=== PATIENT | female | born 1945 | race Caucasian/White ===

== ENCOUNTER 2016-05-12 17:05 | Emergency (ER) | payer MEDICAID, MEDICARE ==
[~2016-05-12 17:05] MED LIST: ZIT250 PO
[2016-05-12 17:25] VITALS: BP 125/86; PULSE 82; RESP 20; O2SAT 100
[2016-05-12 18:03] LABS: BASOPHILS % (AUTO) 1.3 % (0-3); EOSINOPHILS % (AUTO) 0.6 % (0-5); MONOCYTES % (AUTO) 7.3 % (4-12); Mean Corpuscular Hemoglobin 24.7 pg (27.0-35.0); Mean Corpuscular Volume 80.1 fL (81-100); NEUTROPHILS % (AUTO) 63.4 % (40-74); Platelet Count 348 bil/L (150-400)
[2016-05-12 18:15] LABS: INR 0.99 ratio
[2016-05-12 19:01] LABS: Magnesium 2.2 mg/dL (1.6-2.6)
[2016-05-12 19:18] LABS: APPEARANCE,URINE HAZY (CLEAR,HAZY); COLOR,URINE DARK YELLOW (YELLOW); OCCULT BLOOD,URINE LARGE (NEGATIVE); PH,URINE 6.5 (5.0-8.0)
--- NOTE | 2016-05-12 19:21 | ED.REPORT ---
HPI-Abd Pain F 40 and Over Date of Service May 12, 2016 ED Provider: Elena Gutierrez MD 70 y/o female with a history of gastric ulcers presents to ED after lower abdominal pain and increased nausea and vomiting 1 week ago. She also reports associated pain of her lower abdomen, which radiates to her back and to her sternum. The pain waxes and wanes, and is especially sharp after urination. She also reports that her urine is maroon colored. The patient reports a subjective fever and generalized weakness. She reports that her current symptoms are different than what she normally experiences in relation to her gastric ulcers. She reports that she has chronic upper abdominal pain, nausea, and vomiting due to her gastric ulcers. She typically eats 1x meal a day and day and vomits 1x per day. She has been vomiting 2x daily for the last week. She has associated decreased PO intake, only consuming soup, cream of wheat, and crackers. She vomits when eating anything different or a larger meal. She reports unintentional 10lb weight loss in the last month. The patient reports dark bowel movements, with the last one occurring yesterday. 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 She denies prior cholecystectomy or appendectomy. GI symptoms started 1 year ago and she underwent endoscopy in November which diagnosed the gastric ulcers. She subsequently started taking appropriate medications for ulcer treatment. Her GI physician is in the [facility]. Nursing Notes Stated Complaint: URINARY Chief Complaint: Female Abdominal Pain Nursing Notes Reviewed: Yes Allergies: Coded Allergies: Sulfa (Sulfonamide Antibiotics) (Verified Allergy, Severe, Anaphylaxis, ) Scheduled Azithromycin (Zithromax) 250 Mg Tablet 250 MG PO DAILY Famotidine (Pepcid) 20 Mg Tablet 20 MG PO BID General Time Seen by MD: 19:18 Chief Complaint Abdominal pain (Lower Abdominal pain) Hx Obtained From: Patient, Spouse Arrived By: Walk-in Sudden in Onset?: Yes Onset Occurred: 1 week ago Symptom Duration: Since onset Location: : Abdomen lower Quality: Painful Severity: Current: Moderate Severity: Maximum: Moderate Recent Healthcare: No recent doctor visit, No recent hospitalization Similar Sx Previous: Yes Past Medical History Past Medical History Dr. Wren at [facility] is her Manager [employer]. Gastric ulcers Reports: COPD Past Surgical History Pt has had surgeries to treat stomach ulcers and gastric valve repair Reports: Hysterectomy, Denies: Appendectomy, Cholecystectomy Family History Noncontributory Smoking History Current Every Day Smoker Social History Other Social History: Good social support, Local resident Ambulatory Status Independent Review of Systems +maroon urine Constitutional: Reports: Fever (subjective, feeling abnormally hot. ), Recent wt loss (10 pounds over the last month.), Weakness - generalized GI: Reports: Abdominal pain, Nausea, Vomiting, Denies: Diarrhea Complete sys rev & neg: except as marked. Physical Exam Vital Signs Vital Signs (First) Date Time Temp Pulse Resp B/P Pulse Ox O2 Delivery O2 Flow Rate FiO2 05/12/16 17:25 36.2 82 20 125/86 100 Room Air Initial VS: Reviewed, Vital signs normal Neurologic: Alert, Oriented, Nonfocal Psychiatric: Mood/affect normal, Behavior normal, Normal thought content General/Constitutional: Awake, Alert, Well developed Respiratory / Chest: Atraumatic, Breath sounds NL, Breath sounds = bilat, No respiratory distress, No rales, No rhonchi, No wheezing Cardiovascular: Heart rate NL, Regular rhythm, Heart sounds NL, No gallop, No murmurs, No rubs Abdomen: Atraumatic, Soft, No guarding, No rebound Tenderness/Guarding/Rebound: Positive: Tender RUQ... (Moderate), Tender epigastric Back: Atraumatic, No CVA tenderness Head / Eyes: Atraumatic, Normocephalic, PERRL, EOMI, No scleral icterus ENT: Mucous membranes moist Skin: Warm, Dry Upper Extremity / MS: Atraumatic, Full range of motion Lower Extremity / Pelvis / MS: Atraumatic, Full range of motion Interpretation & Diagnostics Lab Results Interpretation Result Diagram: 05/12/16 1751 05/12/16 1751 Test 05/12/16 17:51 05/12/16 17:57 05/12/16 18:52 White Blood Count 5.5th/mm3 (3.8-10.1) Red Blood Count 4.33mil/mm3 (3.90-5.20) Hemoglobin 10.7g/dL (12.0-15.6) Hematocrit 34.7% (35.0-46.0) Mean Corpuscular Volume 80.1fL (81-100) Mean Corpuscular Hemoglobin 24.7pg (27.0-35.0) Mean Corpuscular Hemoglobin Concent 30.8% (32.0-37.0) Red Cell Distribution Width 16.5% (12.3-15.4) Platelet Count 348bil/L (150-400) Neutrophils (%) (Auto) 63.4% (40-74) Lymphocytes (%) (Auto) 27.2% (14-46) Monocytes (%) (Auto) 7.3% (4-12) Eosinophils (%) (Auto) 0.6% (0-5) Basophils (%) (Auto) 1.3% (0-3) Prothrombin Time 10.6sec (8.1-12.5) Prothromb Time International Ratio 0.99ratio Sodium Level 144mEq/L (134-144) Potassium Level 3.6mEq/L (3.5-5.2) Chloride Level 104mEq/L (97-108) Carbon Dioxide Level 25mmol/L (18-29) Blood Urea Nitrogen 17mg/dL (8-27) Creatinine 0.56mg/dL (0.57-1.00) Estimat Glomerular Filtration Rate 153mL/min (>59) Glucose Level 101mg/dL (60-99) Calcium Level 8.8mg/dL (8.5-10.1) Magnesium Level 2.2mg/dL (1.6-2.6) Total Bilirubin 0.2mg/dL (0.0-1.2) Aspartate Amino Transf (AST/SGOT) 16U/L (0-50) Alanine Aminotransferase (ALT/SGPT) 9U/L (0-32) Alkaline Phosphatase 104U/L (25-165) Pro-B-Type Natriuretic Peptide 688.9pg/mL (0-301) Total Protein 6.9g/dL (6.4-8.4) Albumin 4.0g/dL (3.4-5.0) Lipase 16U/L (13-60) Hold [place]jeda Top Tube Received (Received) Urine Color Dark yellow (YELLOW) Urine Appearance Hazy (CLEAR,HAZY) Urine pH 6.5 (5.0-8.0) Urine Specific [place] 1.030 (1.003-1.035) Urine Protein 100mg/dL (NEG,TRACE) Urine Glucose (UA) 100mg/dL (NEGATIVE) Urine Ketones Tracemg/dL (NEGATIVE) Urine Occult Blood Large (NEGATIVE) Urine Nitrite Positive (NEGATIVE) Urine Bilirubin Negative (NEGATIVE) Urine Urobilinogen 1.0mg/dL (NORMAL) Urine Leukocyte Esterase Trace (NEGATIVE) Urine RBC 3-10/hpf (0-2) Urine WBC 0-5/hpf (0-5) Urine Epithelial Cells None/hpf (NONE-MOD) Urine Crystals None seen (NONE SEEN) Urine Bacteria Few/hpf (NONE-FEW) Urine Hyaline Casts None/lpf (NONE) Urine Granular Casts None seen (NONE SEEN) Urine Waxy Casts None seen (NONE SEEN) Urine Red Blood Cell Casts None seen (NONE SEEN) Urine White Blood Cell Casts None seen (NONE SEEN) Urine Mucus None seen (None Seen) Urine Trichomonas None seen (NONE SEEN) Urine Yeast None (NONE SEEN) Urinalysis Comment None Urine Culture Reflexed Indicated CT Abd / Pelvis Interpretation IMPRESSION: 1. A 2 mm stone in the inferior pole of the left kidney. No hydronephrosis. 2. Small indeterminate hypodense nodule in the left kidney is most likely a cyst. 3. Cholelithiasis and mild gallbladder distention. 4. There are postsurgical changes in stomach. The stomach is distended. ? gastric outlet obstruction. 5. Emphysema. 6. Mildly distended distal esophagus. This finding may be secondary to gastroesophageal reflux. Dictated by: Christy Alves M.D. on 05/12/2016 at 20:16 Approved by: Christy Alves M.D. on 05/12/2016 at 20:26 Study type: Abdominal CT no contrast Interpretation / Wet Read by: Interpret - Radiologist Re-Eval/Medical Decision Med Decision/Clinical Course The patient presents with increased vomiting and change in her urine. She does have some signs of infection however it is not clear so we will wait for culture given she has no dysuria. Also concern for possible gallbladder issue and acute renal failure related to her poor by mouth intake. Another consideration would be renal colic. CT did not reveal cause of her symptoms although they noted she did have an enlarged gastric bubble which could be related to gastric outlet obstruction. Patient has known peptic ulcer disease and has been treated so this could be related to developing gastric outlet obstruction however she is not fully obstructed given she is able to tolerate fluids. She was given a by mouth challenge here was able to keep liquids down. A partial list of differential diagnoses considered were pancreatitis, gastroenteritis, peptic ulcer disease, bowel obstruction, biliary colic, renal colic, renal insufficiency, and dehydration. In listening to her story it is most likely that her peptic ulcer disease is worsening, I explained to her she needs to get a hold of her technology coordinator for follow-up appointment this week. She is also instructed to cure her food and add more calories given she continues to lose weight. Source of Hx: Old records Re-Evaluation/Progress #1: Time of Eval: 20:34 Re-Evaluation/Progress Note: Rechecked with patient. Explained test results and answered patient questions. Re-Evaluation/Progress #2: Time of Eval: 21:49 Re-Evaluation/Progress Note: Rechecked patient to evaluate food and water consumption ability. Patient reported they could typically hold down water, but vomits solid foods. Will do PO trial with Ensure. Re-Evaluation/Progress #3: Time of Eval: 22:00 Patient Status: Condition improved, Drinking well without N/V Re-Evaluation/Progress Note: PO trial complete. Patient understands and agrees with the plan to be discharged home. Discharge instructions and follow-up discussed. All questions were addressed. Return to the ED warnings given. Counseled Regarding: Diagnosis, Lab results, Need for follow-up, When/why to return to ED Discharge & Departure Primary Impression: Peptic ulcer disease Additional Impression: Gastric outlet obstruction Disposition: Home Discharge Condition All VS Reviewed: Yes Condition: Stable Additional Instructions: You are having more difficulty due to swelling, which is making it more difficult for food to pass. You need to call your Manager [employer] tomorrow and schedule a follow up appointment with him. Continue Omeprazole. We are adding Pepcid to you medication regiment. You need to remain on a liquid diet. Be sure to puree any solid food that you choose to consume. Drink Ensure 2 to 3 times a day to supplement calories. Return to the Emergency Department if you are unable to tolerate fluids or develop any other new or worsening symptoms. Referrals: Ed Alvarenga MD (PCP) Scribe Attestation Portions of this note were transcribed by Marlo Hammer and Yolanda Mario. I, Dr. Gutierrez personally performed the history, physical exam and medical decision- making; I reviewed and confirmed the accuracy of the information in the transcribed note. Signed by: Marlo Hammer and Justo Ariza, 05/13/2016 and 0054. copies to: Ed Alvarenga MD,Elena Matthews MD May 12, 2016 19:21 aMrlo Hammer May 12, 2016 19:47 Yolanda Mario May 12, 2016 20:48
[2016-05-12] MEDS ORDERED: Ondansetron 2 mg/mL 2 mL Inj ONE (19:37)
[2016-05-12] MEDS ORDERED: 0.9% Sodium Chloride 1,000 ML IV ONE (19:40)
[2016-05-12] MEDS ORDERED: Ondansetron 2 mg/mL 2 mL Inj IVPUSH ONE (19:40)
--- NOTE | 2016-05-12 20:28 | DRSVH ---
PROCEDURE: CT KUB ([id number]) INDICATIONS: kidney pain and hematuria TECHNIQUE: Noncontrast 5 mm thick sections acquired from the diaphragms to the symphysis. 5 mm thick coronal an d sagittal reformats were then performed. For radiation dose reduction, the following was used: aut omated exposure control, adjustment of mA and/or kV according to patient size. COMPARISON: [facility], CR, XR CHEST 1VW (PORTABLE), 01/25/2016, 15:36. FINDINGS: Image quality: Excellent. Lung bases: Mild/moderate emphysema. Lung bases are clear. Heart size is normal. The distal esophag us is mildly distended. Urinary system: A 2 mm stone is seen in the inferior pole of the left kidney. Small hypodense nodule s in the left kidney is most likely a cyst. Both kidneys are normal in size. No hydronephrosis or pe rinephric fat stranding. Both ureters appear non-dilated throughout their expected courses. Bladder wall thickness is normal; no calcified bladder stones. Other solid organs: Liver and spleen are normal in size. Gallbladder is mildly distended and contai ns multiple calcified stones. Pancreas is normal in contours. No adrenal nodules. Peritoneum and bowel: There are postsurgical changes his stomach. Stomach is distended. Unenhanced b owel loops demonstrate normal wall thickness and caliber. No free fluid or air. Nodes and vessels: No retroperitoneal or mesenteric adenopathy by size criteria. Aorta and inferior vena cava are normal in caliber. Moderate atherosclerosis. Abdominal wall: No ventral hernias. Pelvis: No free pelvic fluid. No inguinal hernias or adenopathy. Bones: No suspicious bony lesions. No vertebral body compression fractures. IMPRESSION: 1. A 2 mm stone in the inferior pole of the left kidney. No hydronephrosis. 2. Small indeterminate hypodense nodule in the left kidney is most likely a cyst. 3. Cholelithiasis and mild gallbladder distention. 4. There are postsurgical changes in stomach. The stomach is distended. ? gastric outlet obstruction. 5. Emphysema. 6. Mildly distended distal esophagus. This finding may be secondary to gastroesophageal reflux. Dictated by: Christy Alves M.D. on 05/12/2016 at 20:16 Approved by: Christy Alves M.D. on 05/12/2016 at 20:26
[2016-05-12] MEDS ORDERED: Pantoprazole 4 mg/mL 10 mL Inj IVPUSH ONE (21:55)
[2016-05-12] MEDS ORDERED: Famotidine 10 mg/mL 2 mL Inj IVPUSH ONE (21:55)
[2016-05-12] MEDS ORDERED: FAMO20T PO (22:41)
[2016-05-12 23:05] VITALS: BP 106/79; PULSE 90; RESP 16; O2SAT 99
== END 2016-05-12 23:06 | disposition home or self-care (01) ==
LOC: SED 17:05
DX: K27.9 Peptic ulcer, site unspecified, unspecified as acute or chronic, without hemorrhage or perforation (principal); K31.1 Adult hypertrophic pyloric stenosis; N20.0 Calculus of kidney; N28.89 Other specified disorders of kidney and ureter; K80.20 Calculus of gallbladder without cholecystitis without obstruction; J43.9 Emphysema, unspecified; R50.9 Fever, unspecified; R53.1 Weakness; J44.9 Chronic obstructive pulmonary disease, unspecified; F17.200 Nicotine dependence, unspecified, uncomplicated; Z88.2 Allergy status to sulfonamides
CPT/HCPCS: 36415; 74176; 80053; 81000; 81002; 83690; 83735; 83880; 85025; 85610; 87086; 96361; 96374; 96375; 99285; G0463; J2405; J7030